=== PATIENT | male | born 1985 | race Caucasian/White ===

== ENCOUNTER 2020-11-19 12:42 | Outpatient (CLI) | payer OTHER, SELFPAY ==
--- NOTE | ~2020-11-19 | XR_ITS ---
EXAMINATION: XR sacroiliac joints min 3V DATE: 11/19/2020 13:16 INDICATION: Abnormal immunologic findings in serum TECHNIQUE: AP and left and right oblique views of the bilateral sacral iliac joints were obtained. COMPARISON: None. FINDINGS: Bone alignment is normal. No fracture. Bilateral hip and sacroiliac joint spaces appear normal. No er osions to suggest inflammatory sacroiliitis. There is suggestion of some disc height loss at L5-S1 ho wever evaluation is limited on the provided planes of imaging. IMPRESSION: 1. Normal bilateral hip and sacroiliac joints. Reviewed, dictated and finalized at location A.
--- NOTE | ~2020-11-19 | XR_ITS ---
XR lumbar spine min 4V 11/19/2020 13:16 Indication: Low back pain Procedure: 5 views lumbar spine Comparison: No prior studies for comparison. Findings: Mild levocurvature of the lumbar spine. Vertebral body heights are maintained. No acute fra cture, subluxation or dislocation. No evidence for spondylolisthesis. Mild levoscoliosis. Pedicles in tact. Sacral foramen are symmetric. Impression: 1: Mild levoscoliosis. Reviewed, dictated and finalized at location A. Impression: 1: Mild levoscoliosis.
[2020-11-19 13:47] LABS: Creatine Kinase 156 U/L (55-170)
[2020-11-19 13:50] LABS: Rheumatoid Factor < 8.6 IU/ML (<12)
[2020-11-22 09:27] LABS: Anti Cyclic Citrullinated Pept <16 Units (<20)
[2020-11-22 11:56] LABS: ANA Titer 1:40 (Negative)
[2020-11-23 13:42] LABS: SM Antibody <1.0; SM/RNP Antibody <1.0
[2020-11-23 19:42] LABS: SS-A <1.0; SS-B <1.0
[2020-11-23 23:50] LABS: NIL 0.01 IU/mL; Quantiferon TB Plus, 1T NEGATIVE (NEGATIVE)
[2020-11-24 05:22] LABS: Aldolase 5.6 U/L (<=8.1)
== END 2020-11-19 12:43 | disposition home or self-care (01) ==
PROVIDERS: PCP Internal Medicine; Visit Provider Internal Medicine
DX: R76.8 Other specified abnormal immunological findings in serum (principal); M19.90 Unspecified osteoarthritis, unspecified site; Z51.81 Encounter for therapeutic drug level monitoring; Z79.899 Other long term (current) drug therapy; M54.89 Other dorsalgia; M41.9 Scoliosis, unspecified
CPT/HCPCS: 36415; 72110; 72202; 82085; 82550; 86038; 86039; 86200; 86225; 86235; 86430; 86480

== ENCOUNTER 2021-01-05 15:43 | Outpatient (CLI) | payer OTHER, SELFPAY ==
--- NOTE | ~2021-01-05 | MR_ITS ---
EXAMINATION: MR lumbar spine wo con EXAM DATE: 01/05/2021 16:38 INDICATION: R76.8 - Other specified abnormal immunological findings in serum. Inflammatory arthritis and low back pain. TECHNIQUE: Multi-sequential, multiplanar MR images of the lumbar spine were obtained without contrast . Sagittal T1, T2, T2 fat saturation images. Axial T2 weighted images. Correlation is made to lumba r x-ray 11/19/2020. FINDINGS: There is 2 mm retrolisthesis L5 on S1 with mild loss of this disc height. The vertebral bod ies are otherwise aligned. The vertebral body and disc heights are otherwise well maintained. The con us medullaris terminates at the L1 level and has normal signal intensity and morphology. There are n o suspicious marrow signal abnormalities. Paraspinal soft tissue is unremarkable. Level by level evaluation: T12-L1: Disc does not extend beyond the endplate margin. Facet arthropathy: None. Neural foraminal stenosis: No stenosis. Central canal stenosis: No stenosis. L1-L2: Disc does not extend beyond the endplate margin. Facet arthropathy: None. Neural foraminal stenosis: No stenosis. Central canal stenosis: No stenosis. L2-L3: Disc does not extend beyond the endplate margin. Facet arthropathy: Mild. Neural foraminal stenosis: No stenosis. Central canal stenosis: No stenosis. L3-L4: Disc does not extend beyond the endplate margin. Facet arthropathy: Mild. Neural foraminal stenosis: No stenosis. Central canal stenosis: No stenosis. L4-L5: There is a mild diffuse disc bulge. Facet arthropathy: Mild to moderate. Neural foraminal stenosis: Mild left. Central canal stenosis: No stenosis. L5-S1: There is a mild diffuse disc bulge. Facet arthropathy: Moderate right, mild left. Neural foraminal stenosis: Moderate right (from facet osteoarthropathy), mild left. Central canal stenosis: No stenosis. IMPRESSION: 1. L5-S1 moderate right neural foraminal stenosis. 2. Otherwise mild lumbar spondylosis. Reviewed, dictated and finalized at location B.
--- NOTE | ~2021-01-05 | MR_ITS ---
EXAMINATION: MR sacroiliac jts wo/w con DATE: 01/05/2021 17:15 INDICATION: Myalgia, inflammatory arthritis with low back and bilateral hip pain. No other abnormal i mmunologic findings in serum. TECHNIQUE: Magnetic resonance imaging (MRI) of the sacral iliac joints was performed without and with 15 mL Multihance intravenous contrast. Sequences included sagittal PD-weighted FS FSE, coronal obli que T2-weighted FS FSE, coronal oblique T2-weighted FS FSE coronal oblique T1-weighted FSE, oblique a xial T2-weighted FS FSE, oblique axial T1-weighted FSE and oblique axial T1-weighted FS FSE. Addition al postcontrast oblique axial T1-weighted FS FSE and oblique axial T1-weighted FS FSE were also obtai luigi. COMPARISON: Radiographs dated 11/29/2020 FINDINGS: Bone alignment is normal. There is normal marrow signal. No fracture or pathologic marrow replacing p rocess. The lateral sacral iliac joint spaces are normal and symmetric. No sacroiliac joint effusions , abnormally enhancing synovitis, erosions or abnormal subarticular marrow signal to suggest an infla mmatory sacroiliitis. Lateral hip joint spaces also appear normal with no joint effusions. Mild spond ylosis in the visualized lower lumbar spine. See separate lumbar spine MRI report for further detail. Bladder is normal. No pathologically enlarged pelvic lymphadenopathy. IMPRESSION: 1. Normal bilateral sacroiliac and hip joints. Reviewed, dictated and finalized at location A.
[2021-01-05 16:20] LABS: Estimated Glomerular Filt Rate > 60
== END 2021-01-05 15:44 | disposition home or self-care (01) ==
LOC: ANHIMG 15:50
PROVIDERS: PCP Internal Medicine; Visit Provider Internal Medicine
DX: R76.8 Other specified abnormal immunological findings in serum (principal); M19.90 Unspecified osteoarthritis, unspecified site; Z79.899 Other long term (current) drug therapy; M54.89 Other dorsalgia; M79.10 Myalgia, unspecified site; M48.07 Spinal stenosis, lumbosacral region; M47.816 Spondylosis without myelopathy or radiculopathy, lumbar region
CPT/HCPCS: 72148; 72197; A9577

== ENCOUNTER 2022-12-25 15:24 | Emergency (ER) | payer OTHER, SELFPAY ==
[2022-12-25 15:30] VITALS: BP 129/72; PULSE 46; RESP 20; TEMP 36.7; O2SAT 98
--- NOTE | 2022-12-25 15:31 | ED.SKABFB ---
HPI - Skin/Abscess/Foreign Bdy General Chief complaint: Skin/Abscess/Foreign Body Stated complaint: poison shelly Time Seen by Provider: 12/25/22 15:33 Source: patient Mode of arrival: ambulatory Limitations: no limitations History of Present Illness HPI narrative: Sigifredo is a 37-year-old male patient presenting to the clinic today with complaints possible poison shelly. He reports symptoms began yesterday. He has been out in his yd working and thinks her may be poison shelly there. States his just had poison shelly 1-2 weeks ago. Has poison shelly 2 bilateral arms and on his face. Related Data Allergies Allergy/AdvReac Type Severity Reaction Status Date / Time No Known Allergies Allergy Verified 01/21/21 14:03 Review of Systems Review of Systems: Pertinent positives per HPI. Patient denies any fever, chills, headache, visual changes, dizziness, cough, runny nose, sore throat, shortness of breath, chest pain, palpitations, nausea, vomiting, diarrhea, constipation, abdominal pain, or any urinary issues. PMFSH Past Medical History Medical History ANABEL positive (~03/2020) Back pain due to inflammatory process Inflammatory arthritis Family History Family History Mother Thyroid disorder Hypertension Osteoarthritis Father Hypertension Osteoarthritis Grandparent Cancer Heart disease COPD (chronic obstructive pulmonary disease) Diabetes mellitus Muscular dystrophy Social History Social History Smoking status: Never smoker Alcohol intake: never Substance use: never Substance use type: does not use Comments At the time of my signature, I reviewed and agree with the nursing past medical, surgical, social, and family history. There is no relevant family history pertinent to the patient complaint. Exam Narrative: General: Well-developed, well nourished, in no apparent distress Head: Normocephalic, atraumatic. Cardio: Regular rate and rhythm, s1 and s2 normal, no murmur appreciated. Resp: Clear to auscultation bilaterally, no rhonchi, rales, wheezing or rubs. Integumentary: [place], warm, and dry, intact without lesion, no rashes. Course Course Emergency Course: Portions of this record may have been created with voice recognition software. Level of Care: Express Care Visit Vital Signs Vital signs: Vital signs reviewed MDM - Skin/Abscess/Foreign Bdy MDM Narrative Medical decision making narrative: At the time of visit patient is resting comfortably on the exam table. I suspect patient has allergic contact dermatitis due to plants. He does have this on his face to dexamethasone 10 mg IM was given in the clinic today. Prescription for prednisone and triamcinolone cream was sent to pharmacy and supportive measures were discussed with the patient he voiced understanding discharge instructions agrees to treatment plan. Differential Diagnosis Differential diagnosis: Likely viral exanthem, allergic reaction to drug, cellulitis, eczema, insect bites and contact dermatitis Discharge Plan Discharge Clinical Impression: Allergic contact dermatitis due to plant Patient Disposition: Home, Self-Care Condition: Stable Instructions: Antibiotic Form, Poison Shelly (ED) Additional Instructions: Dexamethasone 10 mg IM given in the clinic today Apply triamcinolone cream as directed Take prednisone as directed-start tomorrow December 26, 2022 Avoid hot showers May apply calamine lotion to rash Avoid scratching and this causes rash to spread May take benadryl 25-50mg every 6 hours as needed for itching. Follow up with your PCP in 3-5 days if symptoms persist or sooner if they worsen Go to the Emergency Room if symptoms worsen- fever, rash spreading with treatment, shortness of breath, tongue swelling, drooli
== END 2022-12-25 16:02 | disposition home or self-care (01) ==
PROVIDERS: Emergency Provider Nurse Practitioner Family
DX: L23.7 Allergic contact dermatitis due to plants, except food (principal); M13.80 Other specified arthritis, unspecified site
CPT/HCPCS: 96372; 99213; G0463; J1100